=== PATIENT | female | born 1960 | race Caucasian/White ===

== ENCOUNTER 2020-10-17 20:47 | Emergency (ER) | payer OTHER ==
[2020-10-17] MEDS ORDERED: NAPROSYN500 MG PO (22:38)
[2020-10-17] MEDS ORDERED: ZOFRAN4 MG PO (22:38)
== END 2020-10-17 22:40 | disposition home or self-care (01) ==
LOC: ER1 20:47
DX: G43.909 Migraine, unspecified, not intractable, without status migrainosus (principal); E11.9 Type 2 diabetes mellitus without complications; I10 Essential (primary) hypertension; Z90.49 Acquired absence of other specified parts of digestive tract; Z88.2 Allergy status to sulfonamides
CPT/HCPCS: 99283; J1200; J1885; J2765